=== PATIENT | female | born 1980 | race Caucasian/White ===

== ENCOUNTER 2016-05-11 10:06 | Emergency (ER) | payer OTHER ==
[~2016-05-11] VITALS: Ht 167.6 cm; Wt 62.0 kg
[~2016-05-11 10:06] MED LIST: NAPR-1169 PO
[2016-05-11 10:20] VITALS: TEMP 36.9; Ht 167.6 cm; Wt 62.0 kg
[2016-05-11] MEDS ORDERED: MoRPHine SULFATE 10 MG/ML CARP/VIAL IM STA ×2 (10:55→11:54)
--- NOTE | 2016-05-11 10:57 | EMERGENCY ROOM VISIT NOTE ---
History Report prepared by Amairani: Eliseo Cole Under the Supervision of: Dr. Jong Brooks M.D. First contact with patient: 10:49 Chief Complaint: BACK PAIN Stated Complaint: BACK PAIN History of Present Illness The patient is a 36 year old female who presents to the Emergency Room with complaints of worsening low back pain for the past two weeks. The pain is throbbing in nature and is worse when she is sitting and ambulating. The pain radiates to the right buttock but not down into the legs. 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 She does not recall any specific incident of injury. The patient denies incontinence of the bowel or bladder. She started Flexeril and Prednisone last night after going to urgent care. She had a negative X-ray at urgent care. She denies the possibility of . Source of History: patient Onset: two weeks ago Position: back (lower) Quality: other (throbbing) Timing: worsening Modifying Factors (Worsening): other (sitting, ambulation) Review of Systems All systems have been listed, reviewed, and are negative other than those previously mentioned. Please see Additional Medical History Sheet. Past Medical & Surgical Surgical Problems: (1) Hx of tubal ligation Family History Cancer Diabetes mellitus Hypertension Seizures Social History Smoking Status: Current Every Day Smoker Alcohol Use: occasionally Marital Status: single Housing Status: lives with family Occupation Status: employed Current/Historical Medications Scheduled Cyclobenzaprine HCl (Cyclobenzaprine HCl), 10 MG PO UD Prednisone (Prednisone), 10 MG PO UD Scheduled PRN Hydrocodone/Acetaminophen 5MG/325MG ([place] 5MG/325MG), 1-1.5 TABLET PO Q4-6H PRN for Pain Naproxen (Naprosyn), 500 MG PO DIRECTED PRN for Pain Allergies Coded Allergies: Fentanyl (Unverified Allergy, Mild, SEVERE ITCHING, 05/11/16) Physical Exam Vital Signs Date Time Temp Pulse Resp B/P Pulse Ox O2 Delivery O2 Flow Rate FiO2 05/11/16 13:00 86 16 128/78 97 05/11/16 11:49 86 16 128/78 97 Room Air 05/11/16 10:20 36.9 96 18 148/82 97 Room Air Physical Exam GENERAL: Patient awake, alert, oriented x 3. Patient follows commands. Patient does not appear toxic. Patient is adequately hydrated and well- nourished. SKIN: No erythema, pallor, cyanosis or rash HEENT: Normal head, pupils equal, reactive to light and accommodation. LUNGS: Clear to auscultation. No wheezes, no rales, no rhonchi. HEART: No murmurs. No gallops. No rubs BACK: Tenderness over the lower lumbar and sacral spine with pain that seems to radiate to the right buttock, increased pain with movement of either leg especially the left, deep tendon reflexes brisk and equal bilaterally, motor sensory function intact distally. ABDOMEN: No masses, no rebound, no hepatomegaly or splenomegaly. EXTREMITIES: No signs of trauma. No pedal or pretibial edema. No calf or thigh tenderness. NEUROLOGIC: Cranial nerves II-XII within normal limits. No gross motor sensory function deficits. Medical Decision & Procedures Laboratory Results Test 05/11/16 13:14 Bedside Troponin I 0.000 ng/ml (0-0.045) Medications Administered Medications (Trade) Dose Ordered Sig/Ed Route Start Time Stop Time Status Last Admin Dose Admin Morphine Sulfate (MoRPHine SULFATE INJ) 10 mg NOW STAT IM 05/11/16 10:55 05/11/16 11:02 DC 05/11/16 11:07 10 MG Morphine Sulfate (MoRPHine SULFATE INJ) 6 mg NOW STAT IM 05/11/16 11:54 05/11/16 11:55 DC 05/11/16 12:05 6 MG ED Course 1052: Past medical records reviewed. The patient was evaluated in room B11b. A complete history and physical examination was performed. 1055: Morphine Sulfate 10 mg IM. 1150: The patient is still in pain. Ordering more morphine. 1154: Morphine Sulfate 6 mg IM. 1245: The patient is still having some pain. Discussed the discharge instructions with her. She verbalized understanding and agreement. The patient is ready for discharge. Medical Decision I considered multiple diagnoses including cauda equina, ruptured nucleus pulposus, muscular strain, DJD. The patient is here with severe lower back pain. The patient has irregular bowel movements and has not had a good bowel movement in the past 4 days. The patient did have a enema within the past week. The patient was given 2 shots of morphine. We did discuss the options of an MRI but she and her elected to forego that procedure for now. The patient will continue taking prednisone that was already prescribed. She is also to use Flexeril. The patient has hydrocodone to take in addition. Patient is to be off work and school for the next 3 days. Impression Primary Impression: Severe low back pain Scribe Attestation The scribe's documentation has been prepared under my direction and personally reviewed by me in its entirety. I confirm that the note above accurately reflects all work, treatment, procedures, and medical decision making performed by me. Departure Information Dispostion Home / Self-Care Referrals Chela Richards M.D. (PCP) Forms HOME CARE DOCUMENTATION FORM, IMPORTANT VISIT INFORMATION, School Instructions, Work Instructions Patient Instructions My [facility] Additional Instructions Take 1 dose of MiraLAX as soon as you get home. Take a second dose tonight if you have not yet had a bowel movement. Continue prednisone as prescribed. Continue Flexeril as prescribed. Start taking ibuprofen after the prednisone course has been completed. Follow-up with your family physician within the next several days. Return here and if pain is getting worse. Off school and work for the next 3 days. Apply heat intermittently to your lower back over the next 3 days.
[2016-05-11] MEDS ORDERED: HYDR-5688 PO (11:08)
[2016-05-11] MEDS ORDERED: PRED10TA PO (11:08)
[2016-05-11] MEDS ORDERED: CYCL10TA7 PO (11:08)
[2016-05-11 13:00] VITALS: BP 128/78; PULSE 86; O2SAT 97
[2016-05-18] MEDS ORDERED: ATV1 PO (08:47)
[2016-05-18] MEDS ORDERED: RXC5 PO (08:47)
== END 2016-05-11 13:00 | disposition home or self-care (01) ==
LOC: C.EDB 10:07
DX: M54.5 Low back pain (principal); F17.200 Nicotine dependence, unspecified, uncomplicated; Z88.8 Allergy status to other drugs, medicaments and biological substances; Z80.9 Family history of malignant neoplasm, unspecified; Z83.3 Family history of diabetes mellitus; Z82.49 Family history of ischemic heart disease and other diseases of the circulatory system; Z82.0 Family history of epilepsy and other diseases of the nervous system

== ENCOUNTER 2016-05-16 10:44 | Inpatient (IN) | payer OTHER ==
[~2016-05-16] VITALS: Ht 172.7 cm; Wt 61.8 kg
[~2016-05-16 10:44] MED LIST changes: +CYCL10TA7 PO; +HYDR-5688 PO; +PRED10TA PO
[2016-05-16] MEDS ORDERED: SODIUM CHLORIDE 0.9% 1000ML 1,000 ML IV STA (11:22)
[2016-05-16] MEDS ORDERED: DEXAMETHASONE SOD INJ 4 MG/ML VIAL IV STA (11:22)
[2016-05-16] MEDS ORDERED: HYDROmorphone INJ 1 MG/ML SYR IV STA (11:22)
[2016-05-16] MEDS ORDERED: KETOROLAC TROMETHAMINE 30 MG/ML VIAL IV STA (11:22)
[2016-05-16] MEDS ORDERED: DEXAMETHASONE SOD INJ 10 MG/ML VIAL ONE (11:53)
[2016-05-16 11:55] LABS: BASO % 0.3 %; BASO ABS # 0.03 K/uL (0-0.2); COMPLETE YES; EOS % 1.2 %; HEMATOCRIT 32.8 % (37-47); IG% 0.3 %; LYMPH % 36.4 %; LYMPH ABS # 3.27 K/uL (1.2-3.4); MEAN CELL VOLUME 85.9 fL (80-100); MEAN CORPUSCULAR HEMOGLOBIN 28.8 pg (25-34); MEAN CORPUSCULAR HGB CONC 33.5 g/dl (32-36); MEAN PLATELET VOLUME 9.7 fL (7.4-10.4); MONO % 9.8 %; PLATELET COUNT 256 K/uL (130-400); RED BLOOD COUNT 3.82 M/uL (4.2-5.4); WHITE BLOOD COUNT 8.98 K/uL (4.8-10.8)
[2016-05-16 12:00] LABS: URINE APPEARANCE CLEAR (CLEAR); URINE BILIRUBIN NEG (NEG); URINE COLOR YELLOW; URINE EPITHELIAL CELL AUTO >30 /lpf (0-5); URINE NITRITE NEG (NEG); URINE PH 7.5 (4.5-7.5); URINE SPECIFIC GRAVITY 1.006 (1.000-1.030); UROBILINOGEN NEG (NEG); ZZUR CULT IF INDIC CLEAN CATCH YES
[2016-05-16] MEDS ORDERED: DiphenhydrAMINE HCL 50 MG/ML VIAL IV STA (12:02)
[2016-05-16] MEDS ORDERED: LORAZEPAM 2 MG/ML 1 ML VIAL IV STA (12:02)
[2016-05-16 12:06] LABS: MANUAL MICROSCOPIC REQUIRED? NO; REVIEW REQ? YES
[2016-05-16 12:11] LABS: BLOOD UREA NITROGEN 8 mg/dl (7-18); BUN/CREATININE RATIO 14.6 (10-20); C-REACTIVE PROTEIN < 0.29 mg/dl (0-0.29); CALCIUM 8.8 mg/dl (8.5-10.1); CARBON DIOXIDE 26 mmol/L (21-32); CHLORIDE 109 mmol/L (98-107); CREATININE 0.57 mg/dl (0.60-1.20); GLUCOSE 98 mg/dl (70-99); POTASSIUM 3.6 mmol/L (3.5-5.1); SODIUM 141 mmol/L (136-145)
[2016-05-16] MEDS ORDERED: MoRPHine SULFATE 4 MG/ML 1 ML CARP\\VIAL IV STA (12:54)
--- NOTE | 2016-05-16 13:55 | DIAGNOSTIC IMAGING REPORT ---
MRI OF THE LUMBAR SPINE WITHOUT IV CONTRAST CLINICAL HISTORY: Low back pain. Left lower extremity radiculopathy. COMPARISON STUDY: No priors. TECHNIQUE: MRI of the lumbar spine is performed utilizing various T1 and T2-weighted sequences in the axial and sagittal planes. IV contrast was not administered for this examination. FINDINGS: Lumbar spine: Vertebral body height and alignment are maintained throughout the lumbar spine. The transverse and spinous processes appear intact. There is no evidence of spondylolysis. There is chronic degenerative endplate change at L5-S1 with mild associated endplate edema. Small hemangiomas are noted in the bodies of L2 and L4. No destructive bony lesion is identified. Intervertebral discs: There is degenerative disc desiccation and loss of height with a large hernia at L5-S1. The remaining discs are normal in height and signal intensity. Spinal cord: Partially imaged spinal cord is normal in morphology and signal intensity. The conus medullaris terminates at the T12-L1 interspace. The nerve roots of the cauda equina are normal in appearance. L1-L2: Unremarkable. L2-L3: Unremarkable. L3-L4: Unremarkable. L4-L5: Unremarkable. L5-S1: There is a large posterior disc herniation eccentric to the left. This causes moderate to severe central canal stenosis at this level with a minimum AP diameter of 3.5 mm. The herniated fragment is inferiorly extruded and measures up to 2.0 cm. This impinges on the transiting left-sided sacral nerve roots. The neural foramina are patent. Soft tissues: The paraspinous soft tissues are within normal limits. A subcentimeter cyst is noted in the right kidney. IMPRESSION: 1. There is a large disc herniation eccentric to the left at L5-S1 with a large extruded fragment. This causes moderate to severe central canal stenosis at this level and the disc fragment impinges on the transiting left-sided nerve roots. See above. 2. Chronic degenerative endplate change and endplate edema is seen at L5-S1. 3. No significant degenerative change is seen at the remaining lumbar levels. Dictated: 05/16/2016 1:40 PM Transcribed: 05/16/2016 1:55 PM [place] Electronically signed by: Jassi Sparks M.D. 05/16/2016 1:59 PM Dictated Date/Time: 05/16/2016 1:40 PM
[2016-05-16] MEDS ORDERED: MoRPHine SULFATE 4 MG/ML 1 ML CARP\\VIAL IV PRN (16:00)
[2016-05-16] MEDS ORDERED: SODIUM CHLORIDE 0.9% 1000ML 1,000 ML IV SCH (16:09)
[2016-05-16] MEDS ORDERED: OXYCODONE/ACETAMINOPHEN 5-325 TAB PO PRN (16:15)
[2016-05-16] MEDS ORDERED: NALOXONE HCL 0.4 MG/1 ML VIAL/CARP IV PRN (16:15)
[2016-05-16] MEDS ORDERED: PROMETHAZINE HCL INJ 12.5 MG in SODIUM CHLORIDE 0.9% 50ML 50 ML IV PRN (16:15)
[2016-05-16] MEDS ORDERED: MoRPHine SULFATE 1 MG/ML 50 ML PCA CASS IV PRN (16:15)
[2016-05-16] MEDS ORDERED: CYCLOBENZAPRINE HCL 10 MG TAB PO PRN (16:15)
[2016-05-16] MEDS ORDERED: LORAZEPAM INJ 1 MG in SYRINGE 0 ML IV PRN (16:15)
[2016-05-16] MEDS ORDERED: ACETAMINOPHEN 325 MG TAB PO PRN (16:15)
[2016-05-16] MEDS ORDERED: ONDANSETRON INJ 2 MG/ML 2 ML VIAL IV PRN (16:15)
[2016-05-16] MEDS ORDERED: LORAZEPAM 1 MG TAB PO PRN (16:15)
[2016-05-16] MEDS ORDERED: IV FLUIDS COMPLETED PRN (16:30)
--- NOTE | 2016-05-16 17:03 | EMERGENCY ROOM VISIT NOTE ---
History First contact with patient: 10:49 Chief Complaint: BACK PAIN Stated Complaint: BACK PAIN History of Present Illness The patient is a 36 year old female who presents to the Emergency Room with complaints of persistent severe pain in the lower back and extending into the left lower extremity to the foot. The patient reports left lower extremity weakness and difficulty with bowel movements. The patient arrives via ALS and lives because of the pain severity. She was administered morphine 10 mg en route without any relief. 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 She has been seen at the [facility] urgent care center for her symptoms. She has been prescribed [place], Flexeril and corticosteroids without relief of her symptoms. The patient denies any prior history of back injuries or chronic back pain. The patient reports that she was also seen here 5 days ago with similar symptoms. She was offered an MRI at that time, but refused. The patient rates her discomfort a 10 out of 10 on my exam. Review of Systems HEENT: Denies dizziness, visual problems, hearing loss, tinnitus. Denies difficulty swallowing or oral lesions. PULMONARY: Denies cough, shortness of breath, sputum production or hemoptysis. CARDIOVASCULAR: Denies chest pain, palpitations, dyspnea on exertion, orthopnea or peripheral edema. GASTROINTESTINAL: Denies diarrhea, constipation, nausea, vomiting, or abdominal pain. GENITOURINARY: Denies dysuria, frequency, urgency or nocturia. NEUROLOGIC: Denies history of epilepsy, CVA, TIA or chronic headaches. MUSCULOSKELETAL: Denies history of joint tenderness/swelling. SKIN: Denies rashes or lesions. PSYCHIATRIC: Denies history of depression or mental illness. ENDOCRINE: Denies history of diabetes or thyroid disorders. 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) (3) Depressive Disorder Nec (4) Lumbar disc herniation with radiculopathy (5) Tobacco Use Disorder Surgical Problems: (1) Hx of tubal ligation Family History Cancer Diabetes mellitus Hypertension Seizures Social History Smoking Status: Current Every Day Smoker Alcohol Use: occasionally Marital Status: single Housing Status: lives with family Occupation Status: employed Current/Historical Medications Scheduled Cyclobenzaprine HCl (Cyclobenzaprine HCl), 10 MG PO UD Prednisone (Prednisone), 10 MG PO UD Scheduled PRN Hydrocodone/Acetaminophen 5MG/325MG ([place] 5MG/325MG), 1-1.5 TABLET PO Q4-6H PRN for Pain Naproxen (Naprosyn), 500 MG PO DIRECTED PRN for Pain Allergies Coded Allergies: No Known Allergies (Unverified , 05/16/16) Physical Exam Vital Signs Date Time Temp Pulse Resp B/P Pulse Ox O2 Delivery O2 Flow Rate FiO2 05/16/16 15:26 82 132/87 99 05/16/16 13:50 91 123/62 98 Room Air 05/16/16 11:01 36.8 92 20 177/81 100 Room Air Physical Exam CONSTITUTIONAL: Healthy and well nourished. Alert and oriented X 3. Patient appears in severe distress and discomfort. HEENT: Normocephalic, atraumatic. Pupils equal, round and reactive. No sclerae icterus or conjunctival injection/pallor. NECK: Full active range of motion without discomfort. RESPIRATORY: Clear to auscultation bilaterally with no wheezing, crackles, rhonchi or stridor. CARDIOVASCULAR: Regular rate and rhythm with no murmurs, rubs or gallops. GASTROINTESTINAL: Bowel sounds present in all quadrants. Abdomen is soft and nontender to palpation. No rigidity, guarding or rebound. Negative CVA tenderness. Negative McBurney's point tenderness. MUSCULOSKELETAL: Examination shows diffuse tenderness to palpation through the lower lumbar region, more pronounced on the left. She has tenderness to palpation through the left SI joint and sciatic notch. Negative logroll. Positive straight leg raise. Ankle plantar/dorsiflexion strength is 4 out of 5 and symmetric bilaterally. The patient is able to straight leg raise. Passive straight leg on the left significantly worsens her discomfort. Pedal pulses are intact. INTEGUMENTARY: No rash or other significant dermatologic conditions noted. NEUROLOGIC: Cranial nerves II-XII grossly intact. No focal neurologic deficits noted. Deep tendon reflexes of the lower extremities is 2+ and symmetric bilaterally. Left foot and toes are sensory intact. PSYCHIATRIC: Flat affect and cooperative. Medical Decision & Procedures ER Provider Diagnostic Interpretation: Noncontrast MRI of the lumbar spine shows the following: MRI OF THE LUMBAR SPINE WITHOUT IV CONTRAST CLINICAL HISTORY: Low back pain. Left lower extremity radiculopathy. COMPARISON STUDY: No priors. TECHNIQUE: MRI of the lumbar spine is performed utilizing various T1 and T2-weighted sequences in the axial and sagittal planes. IV contrast was not administered for this examination. FINDINGS: Lumbar spine: Vertebral body height and alignment are maintained throughout the lumbar spine. The transverse and spinous processes appear intact. There is no evidence of spondylolysis. There is chronic degenerative endplate change at L5-S1 with mild associated endplate edema. Small hemangiomas are noted in the bodies of L2 and L4. No destructive bony lesion is identified. Intervertebral discs: There is degenerative disc desiccation and loss of height with a large hernia at L5-S1. The remaining discs are normal in height and signal intensity. Spinal cord: Partially imaged spinal cord is normal in morphology and signal intensity. The conus medullaris terminates at the T12-L1 interspace. The nerve roots of the cauda equina are normal in appearance. L1-L2: Unremarkable. L2-L3: Unremarkable. L3-L4: Unremarkable. L4-L5: Unremarkable. L5-S1: There is a large posterior disc herniation eccentric to the left. This causes moderate to severe central canal stenosis at this level with a minimum AP diameter of 3.5 mm. The herniated fragment is inferiorly extruded and measures up to 2.0 cm. This impinges on the transiting left-sided sacral nerve roots. The neural foramina are patent. Soft tissues: The paraspinous soft tissues are within normal limits. A subcentimeter cyst is noted in the right kidney. IMPRESSION: 1. There is a large disc herniation eccentric to the left at L5-S1 with a large extruded fragment. This causes moderate to severe central canal stenosis at this level and the disc fragment impinges on the transiting left-sided nerve roots. See above. 2. Chronic degenerative endplate change and endplate edema is seen at L5-S1. 3. No significant degenerative change is seen at the remaining lumbar levels. Laboratory Results 05/16/16 11:38 Red Blood Count 3.82, Mean Corpuscular Volume 85.9, Mean Corpuscular Hemoglobin 28.8, Mean Corpuscular Hemoglobin Concent 33.5, Mean Platelet Volume 9.7, Neutrophils (%) (Auto) 52.0, Lymphocytes (%) (Auto) 36.4, Monocytes (%) (Auto) 9.8, Eosinophils (%) (Auto) 1.2, Basophils (%) (Auto) 0.3, Neutrophils # (Auto) 4.66, Lymphocytes # (Auto) 3.27, Monocytes # (Auto) 0.88, Eosinophils # (Auto) 0.11, Basophils # (Auto) 0.03 Test 05/16/16 10:56 05/16/16 11:38 05/16/16 16:09 Urine Color YELLOW Urine Appearance CLEAR (CLEAR) Urine pH 7.5 (4.5-7.5) Urine Specific [place] 1.006 (1.000-1.030) Urine Protein NEG (NEG) Urine Glucose (UA) NEG (NEG) Urine Ketones NEG (NEG) Urine Occult Blood NEG (NEG) Urine Nitrite NEG (NEG) Urine Bilirubin NEG (NEG) Urine Urobilinogen NEG (NEG) Urine Leukocyte Esterase MODERATE (NEG) Urine WBC (Auto) 10-30 /hpf (0-5) Urine RBC (Auto) 0-4 /hpf (0-4) Urine Hyaline Casts (Auto) 0 /lpf (0-5) Urine Epithelial Cells (Auto) >30 /lpf (0-5) Urine Bacteria (Auto) NEG (NEG) Urine Renal Epithelial Cells /lpf (0-5) White Blood Count 8.98 K/uL (4.8-10.8) Red Blood Count 3.82 M/uL (4.2-5.4) Hemoglobin 11.0 g/dL (12.0-16.0) Hematocrit 32.8 % (37-47) Mean Corpuscular Volume 85.9 fL (80-100) Mean Corpuscular Hemoglobin 28.8 pg (25-34) Mean Corpuscular Hemoglobin Concent 33.5 g/dl (32-36) Platelet Count 256 K/uL (130-400) Mean Platelet Volume 9.7 fL (7.4-10.4) Neutrophils (%) (Auto) 52.0 % Lymphocytes (%) (Auto) 36.4 % Monocytes (%) (Auto) 9.8 % Eosinophils (%) (Auto) 1.2 % Basophils (%) (Auto) 0.3 % Neutrophils # (Auto) 4.66 K/uL (1.4-6.5) Lymphocytes # (Auto) 3.27 K/uL (1.2-3.4) Monocytes # (Auto) 0.88 K/uL (0.11-0.59) Eosinophils # (Auto) 0.11 K/uL (0-0.5) Basophils # (Auto) 0.03 K/uL (0-0.2) RDW Standard Deviation 51.6 fL (36.4-46.3) RDW Coefficient of Variation 16.6 % (11.5-14.5) Immature Granulocyte % (Auto) 0.3 % Immature Granulocyte # (Auto) 0.03 K/uL (0.00-0.02) Erythrocyte Sedimentation Rate 5 mm/hr (0-21) Est Creatinine Clear Calc Drug Dose 133.1 ml/min C-Reactive Protein < 0.29 mg/dl (0-0.29) Medications Administered Medications (Trade) Dose Ordered Sig/Ed Route Start Time Stop Time Status Last Admin Dose Admin Sodium Chloride (Nss 1000ml) 1,000 ml @ 999 mls/hr Q1H1M STAT IV 05/16/16 11:22 05/16/16 12:22 DC 05/16/16 12:04 999 MLS/HR Hydromorphone HCl (Dilaudid Inj) 1 mg NOW STAT IV 05/16/16 11:22 05/16/16 11:34 DC 05/16/16 11:51 1 MG Ketorolac Tromethamine (Toradol Inj) 30 mg NOW STAT IV 05/16/16 11:22 05/16/16 11:34 DC 05/16/16 11:53 30 MG Dexamethasone Sodium Phosphate (Decadron Inj) 10 mg STK-MED ONCE .ROUTE 05/16/16 11:53 05/16/16 11:54 DC 05/16/16 11:53 10 MG Diphenhydramine HCl (Benadryl Inj) 12.5 mg NOW STAT IV 05/16/16 12:02 05/16/16 12:03 DC 05/16/16 12:11 12.5 MG Lorazepam (Ativan Inj) 1 mg NOW STAT IV 05/16/16 12:02 05/16/16 12:03 DC 05/16/16 12:11 1 MG Morphine Sulfate (MoRPHine SULFATE INJ) 4 mg NOW STAT IV 05/16/16 12:54 05/16/16 12:55 DC 05/16/16 14:08 4 MG Procedure 1. IV hydration: The patient received a liter normal saline bolus 2. IV medications: The patient was initially administered Dilaudid 1 mg, Toradol 30 mg and Decadron 10 mg IVP. After receiving his medication, she had mild nausea and pruritus. She was then administered Benadryl 12.5 mg and Ativan 1 mg IVP. ED Course Patient history and physical exam were performed. Nurse's notes were reviewed. Vital signs were reviewed, showing a blood pressure 177/81. Patient is afebrile. The patient appeared in severe distress, even after receiving morphine 10 mg IVP en route. The patient was administered additional medications and IV hydration as discussed in the previous Procedure section. The patient did request something for anxiety prior to MRI scan. She was administered IV Ativan in addition to medications as discussed in the previous section. The patient did have some pruritus with initial medication dosing, and was also administered IV Benadryl. Noncontrast MRI of the lumbar spine shows a large left-sided L5-S1 disc herniation with fragment. The patient was advised of her MRI findings. The case was also discussed with Dr. Mullen, ED attending physician, who recommended spine surgery consultation. The case was then further discussed with Dr. Dominguez, who agreed that surgical intervention was necessary. He will admit the patient and plan for surgical tomorrow. Please see his dictation for further treatment and final disposition. Medical Decision Impression Primary Impression: L5-S1 disc herniation with extruded fragment Additional Impression: Work related injury Departure Information Referrals Jessy Andrea PA-C (PCP) Patient Instructions My [facility] Problem Qualifiers
[2016-05-16 17:54] VITALS: BP 129/75; PULSE 88; TEMP 36.7; O2SAT 98; Ht 172.7 cm; Wt 61.8 kg
[2016-05-16 19:50] VITALS: BP 117/67; PULSE 85; TEMP 36.9; O2SAT 97
[2016-05-16 19:53] LABS: PREG INTERNAL NEGATIVE QC NEG CLEAR BACKGROUND; PREG INTERNAL POSITIVE QC POS CONTROL LINE
[2016-05-16 20:05] LABS: BUN/CREATININE RATIO 10.4 (10-20); CALCIUM 8.6 mg/dl (8.5-10.1); CREATININE 0.75 mg/dl (0.60-1.20); POTASSIUM 3.9 mmol/L (3.5-5.1)
[2016-05-16 20:08] LABS: ALB/GLOB RATIO 1.1 (0.9-2)
[2016-05-16] MEDS: DOCUSATE SODIUM 100 MG CAP PO SCH (20:39)
[2016-05-16 20:50] VITALS: BP 121/73; PULSE 83; TEMP 36.9; O2SAT 97
--- NOTE | 2016-05-16 20:51 | Anesthesiology Progress Note ---
Anesthesia Progress Note Date of Service May 16, 2016. Progress Notes 36 year old female with lumbar disk herniation for surgical intervention tomorrow. Current every day smoker, otherwise healthy. Labs and ECG on record. No contraindications to procedure from an anesthesia perspective.
[2016-05-16] MEDS ORDERED: NURSING VERBAL MED ORDER ONE ×2 (21:30→21:45)
[2016-05-16 21:45] VITALS: BP 119/74; PULSE 95; TEMP 36.9; O2SAT 97
[2016-05-16 23:34] VITALS: BP 100/62; PULSE 96; TEMP 36.8; O2SAT 96
[2016-05-16] MEDS: HYDROmorphone HCL 0.5MG/ML 50 ML CASSETTE IV PRN (23:40)
[2016-05-17] VITALS (15 sets, daily range): BP systolic 98–132; BP diastolic 56–76; PULSE 66–82; TEMP 36.6–37.4; O2SAT 2–100
[2016-05-17] MEDS ORDERED: CEFAZOLIN 1000MG/55 ML D5W IV SCH (06:00)
[2016-05-17] MEDS ORDERED: CEFAZOLIN IV 1,000 MG in DEXTROSE 5% 50ML 50 ML IV SCH (06:00)
[2016-05-17] MEDS: HYDROmorphone HCL 0.5MG/ML 50 ML CASSETTE IV PRN (07:10)
[2016-05-17] MEDS ORDERED: DiphenhydrAMINE HCL 50 MG/ML VIAL IV PRN (07:45)
--- NOTE | 2016-05-17 08:40 | HISTORY & PHYSICAL EXAMINATION ---
DATE OF ADMISSION: 05/16/2016 CHIEF COMPLAINT: Low back pain with left leg pain going down to her foot and toes. HISTORY OF PRESENT ILLNESS: Ms. Glover is a pleasant 36-year-old female who has had a 2-week history of ongoing pain in the lower back when then extended down her left leg. 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 The pain was very intense this past weekend, went to the Emergency Room on Friday. She was treated and released and had to come by ambulance yesterday. She can barely put pressure on her leg itself due to the pain. She was taking [place], Flexeril and corticosteroids without any relief. They contacted our office for consultation and we decided to admit her overnight for pain control. Today she reports the pain is just as bad as it had been. The IV pain medication takes the edge off but is not completely alleviating her symptoms. She denies any change in bladder or bowel function or any change in balance. PAST MEDICAL HISTORY: Significant for pyelonephritis, atypical squamous cell of the cervix, depression. PAST SURGICAL HISTORY: Significant for tubal ligation. FAMILY HISTORY: Reviewed. REVIEW OF SYSTEMS: Gone over in detail, negative except for what is in the HPI. SOCIAL HISTORY: She is a smoker, has an occasional alcoholic beverage. Denies any illicit drug use. She is single and had been working up until exacerbation of pain. MEDICATIONS: Include prednisone, cyclobenzaprine and hydrocodone. ALLERGIES: SHE HAS NO LISTED ALLERGIES BUT MOST NARCOTICS MAKE HER PRURITIC. PHYSICAL EXAMINATION: GENERAL: She is alert. She will answer questions. She is nontender to palpation along the lumbar spine. Straight leg raise on the left is positive, negative on the right. She has full range of motion of the hips and knees. Lower extremity motor exam reveals focal atrophy. Strength 5/5 to detailed muscle testing with exception of the extensor hallucis longus strength of 4/5. Sensation is blunted in the L5 distribution on the left hand side. Otherwise, sensation is intact. ABDOMEN: Soft, nontender. EXTREMITIES: Calves are supple nontender. Peripheral pulses are palpable. CARDIOVASCULAR EXAMINATION: Reveals no gross abnormalities. Visual moseley are grossly intact. RADIOGRAPHIC IMAGES: MRI of the lumbar spine is available for review. This shows degenerative disc disease at L5-S1. She has very large herniated left-sided disc herniation at L5-S1. This is taking up almost 50% of the canal. There are motor changes at the endplates as well. ASSESSMENT: L5-S1, left-sided disc herniation. PLAN: At this point, the patient is having quite severe pain. The pain medications that she has been on previously have not been helping and she is considering surgical intervention. Surgically would consider performing a lumbar laminectomy at the L5-S1 level versus a complete discectomy with instrumented fusion. The risks and benefits were reviewed in detail with patient via the procedure. At this point, given her age and the focal disc herniation itself she would like to proceed with microdiscectomy. I believe this would be reasonable and gives her a good chance of relief of her radicular complaints, to a lesser degree her lower back pain. Risks of surgery were reviewed and include but are not limited to from anesthetic, stroke, blindness, infection, bleeding requiring transfusion, incomplete relief of symptoms, recurrent disc herniation with need for reoperation, possible fusion in the future. After a thorough discussion, she would like to proceed with surgery. She is n.p.o. at this point and we will try to get it done later today.
[2016-05-17] MEDS ORDERED: NICOTINE 14 MG/24 HR TDSY TD SCH (09:00)
[2016-05-17] MEDS: DOCUSATE SODIUM 100 MG CAP PO SCH ×2 (09:00→20:46)
[2016-05-17] MEDS ORDERED: ONDANSETRON INJ 2 MG/ML 2 ML VIAL ONE (14:55)
[2016-05-17] MEDS ORDERED: PROPOFOL IV EMULSION 10 MG/ML 20 ML VIAL IV ONE (14:55)
[2016-05-17] MEDS ORDERED: MIDAZOLAM HCL 1 MG/ML 2ML VIAL ONE (14:55)
[2016-05-17] MEDS ORDERED: LIDOCAINE HCL 2% 2 ML VIAL (20MG/ML) ONE (14:55)
[2016-05-17] MEDS ORDERED: NEOSTIGMINE METHYLSULFATE 1 MG/ML 10ML VIAL ONE (14:55)
[2016-05-17] MEDS ORDERED: GLYCOPYRROLATE INJ 0.2 MG/ML VIAL ONE ×2 (14:55→16:01)
[2016-05-17] MEDS ORDERED: FENTANYL CITRATE INJ 50 MCG/1 ML 2 ML VIAL ONE ×4 (14:55→16:32)
[2016-05-17] MEDS ORDERED: ATROPINE SULFATE 0.1 MG/ML 5ML SYR IV PRN (15:00)
[2016-05-17] MEDS ORDERED: PROMETHAZINE HCL INJ 6.25 MG in SODIUM CHLORIDE 0.9% 50ML 50 ML IV PRN (15:00)
[2016-05-17] MEDS ORDERED: HYDROmorphone INJ 1 MG/ML SYR IV PRN ×2 (15:00→16:00)
[2016-05-17] MEDS ORDERED: FENTANYL CITRATE INJ 50 MCG/1 ML 2 ML VIAL IV PRN (15:00)
[2016-05-17] MEDS ORDERED: ONDANSETRON INJ 2 MG/ML 2 ML VIAL IV PRN ×2 (15:00→16:00)
[2016-05-17] MEDS ORDERED: EpHEDrine SULFATE INJ 50 MG/ML AMP IV PRN (15:00)
[2016-05-17] MEDS ORDERED: ROCURONIUM BROMIDE 10 MG/ML 5 ML VIAL ONE (15:01)
[2016-05-17] MEDS: EPINEPHRINE INJ ONE ×4 (15:53→17:33)
[2016-05-17] MEDS: BUPIVACAINE 0.5% INJ ONE ×4 (15:53→17:33)
[2016-05-17] MEDS ORDERED: BACITRACIN 50,000 UNITS IR ONE (15:54)
[2016-05-17] MEDS ORDERED: FLOSEAL HEMOSTATIC MATRIX 5ML TOP ONE (15:58)
[2016-05-17] MEDS ORDERED: LORAZEPAM INJ 1 MG in SYRINGE 0.5 ML IV PRN (16:00)
[2016-05-17] MEDS ORDERED: DO NOT ADMINISTER PNEUMOCOCCAL VACCINE PRN ×2 (16:00)
[2016-05-17] MEDS ORDERED: MAGNESIUM HYDROXIDE SUSP 30 ML UDC PO PRN (16:00)
[2016-05-17] MEDS ORDERED: ACETAMINOPHEN 325 MG TAB PO PRN (16:00)
[2016-05-17] MEDS ORDERED: DO NOT ADMINISTER FLU VACCINE PRN ×3 (16:00)
[2016-05-17] MEDS ORDERED: BUPIVACAINE/EPINEPHRINE 0.5% MPF 1:200,000 30 ML VIAL INJ ONE (16:01)
--- NOTE | 2016-05-17 16:01 | DIAGNOSTIC IMAGING REPORT ---
Lumbar spine LUMBAR SPINE 2 OR 3 VIEW CLINICAL HISTORY: L4-L5 laminectomy laminectomy TECHNIQUE: Image intensifier COMPARISON STUDY: None FINDINGS: Surgical instruments posterior to the L5-S1 disc space. IMPRESSION: Surgical instruments posterior to L5-S1 disc space Electronically signed by: Yariel Hargrove M.D. 05/17/2016 3:59 PM Dictated Date/Time: 05/17/2016 3:58 PM
[2016-05-17] MEDS ORDERED: DEXAMETHASONE SOD INJ 4 MG/ML VIAL ONE (16:21)
--- NOTE | 2016-05-17 17:26 | Anesthesiology Progress Note ---
Anesthesia Post Op Note Date & Time May 17, 2016 at 17:26 Vital Signs Pain Intensity: 5.0 Vital Signs Past 12 Hours Date Time Temp Pulse Resp B/P Pulse Ox O2 Delivery O2 Flow Rate FiO2 05/17/16 17:23 36.7 74 18 132/76 99 Nasal Cannula 2.0 05/17/16 17:01 36.8 05/17/16 16:56 62 16 119/56 100 05/17/16 16:56 61 16 05/17/16 16:51 61 15 100 05/17/16 16:51 62 15 05/17/16 16:50 130/72 05/17/16 16:46 69 21 05/17/16 16:46 67 21 99 05/17/16 16:45 63 14 05/17/16 16:45 65 14 117/67 100 05/17/16 16:41 114/68 05/17/16 16:40 63 15 05/17/16 16:40 65 15 100 05/17/16 16:39 61 16 100 05/17/16 16:39 61 16 05/17/16 16:35 117/69 05/17/16 16:34 58 16 100 05/17/16 16:34 57 16 05/17/16 16:30 126/86 05/17/16 16:29 65 12 05/17/16 16:29 65 12 100 05/17/16 16:25 126/76 05/17/16 16:24 71 16 100 05/17/16 16:24 70 16 05/17/16 16:20 130/72 05/17/16 16:19 81 17 05/17/16 16:19 77 17 100 05/17/16 16:15 122/62 05/17/16 16:14 96 18 100 05/17/16 16:14 96 18 05/17/16 16:10 119/93 05/17/16 16:09 36.3 96 16 119/93 96 Mask 10 05/17/16 16:09 103 20 135/73 100 05/17/16 16:09 104 20 05/17/16 11:43 36.9 76 18 110/60 99 Room Air 05/17/16 08:53 97 Room Air 05/17/16 08:00 Room Air 05/17/16 07:44 36.6 73 17 98/58 97 Room Air Notes Mental Status: alert / awake / arousable, participated in evaluation Pt Amnestic to Procedure: Yes Nausea / Vomiting: adequately controlled Pain: adequately controlled Airway Patency, RR, SpO2: stable & adequate BP & HR: stable & adequate Hydration State: stable & adequate Anesthetic Complications: no major complications apparent
[2016-05-17] MEDS: LACTATED RINGER'S 1000ML 1,000 ML IV SCH (17:32)
--- NOTE | 2016-05-17 18:04 | OPERATIVE REPORT ---
DATE OF OPERATION: 05/17/2016 PREOPERATIVE DIAGNOSIS: Herniated nucleus pulposus L5-S1, left. POSTOPERATIVE DIAGNOSIS: Same. PROCEDURE PERFORMED: Lumbar laminotomy L5-S1 left with excision of herniated free fragment. SURGEON: Dr. José Miguel Dominguez. HIGH SCALER: NANY Jones. Due to the complex nature of the procedure, the entire surgery was performed with the operational assistance of NANY Jones. The anesthesiologist assistant certified, under direct supervision, was involved in the actual performance of all aspects of the surgical procedure including hemostasis, tissue retraction and incision, instrument management, patient positioning, and wound closure. ANESTHESIA: General. DISPOSITION: The patient awakened and taken to PACU in stable condition. HISTORY OF PATIENT'S PROBLEMS: This is a 36-year-old female that presents with the above-mentioned diagnosis. After marked decline in status and inability to ambulate, she elected to undergo the above-mentioned procedure. Risks, benefits, pros, cons, and alternatives were outlined in detail preoperatively. PROCEDURE IN DETAIL: The patient was met with preoperatively, case discussed and all questions were addressed. At that point the patient was taken back to operative suite and after undergoing successful general intubation by the department of anesthesia was placed in prone position on Davonte table atop Kam frame. All bony prominences were well padded and the eyes were inspected to ensure there was no external pressure placed upon them. At this point, lumbar spine was prepped and draped in normal sterile fashion. With assistance of fluoroscopy, we identified the L5-S1 disc space and a midline incision was created overlying this region. Sharp dissection with the assistance of Bovie electrocautery was performed down to and exposing the interlaminar space on the left. Self-retaining retractor was placed. I then performed a hemilaminotomy excision of the lateral aspect of the ligamentum flavum to expose a severely compressed traversing S1 nerve root. This was mobilized medially and several massive fragments of free disc material were identified and removed. The area was explored several times to ensure all loose fragments were addressed and copiously irrigated. After this was complete, the incision was then closed with 1-0 Vicryl in the fascia, 2-0 Vicryl subcutaneously, 4-0 Monocryl for final skin closure. Steri-Strips and sterile dressing placed. The patient was awakened and taken to PACU in stable condition. I attest to the content of the Intraoperative Record and any orders documented therein. Any exceptio ns are noted below.
[2016-05-17] MEDS: HYDROmorphone INJ 2 MG/ML SYR/VIAL IV PRN ×2 (18:16→23:24)
[2016-05-17] MEDS: OXYCODONE HCL IR 5 MG TAB (IMMEDIATE RELEASE) PO PRN (19:57)
[2016-05-17] MEDS: CEFAZOLIN IV 1,000 MG in DEXTROSE 5% 50ML 50 ML IV SCH (20:47)
[2016-05-17] MEDS: DEXAMETHASONE INJ 6 MG in SYRINGE 0 ML IV SCH (20:47)
[2016-05-17] MEDS: LORAZEPAM 1 MG TAB PO PRN (23:25)
[2016-05-18] MEDS: DOCUSATE SODIUM 100 MG CAP PO SCH (02:10)
[2016-05-18] MEDS: OXYCODONE HCL IR 5 MG TAB (IMMEDIATE RELEASE) PO PRN ×2 (02:12→07:53)
[2016-05-18 02:55] VITALS: BP 148/68; PULSE 111; TEMP 37.6; O2SAT 94
[2016-05-18] MEDS: HYDROmorphone INJ 2 MG/ML SYR/VIAL IV PRN ×3 (02:57→10:20)
[2016-05-18 02:58] VITALS: TEMP 36.9
[2016-05-18 03:00] VITALS: BP 129/71; PULSE 70; TEMP 36.9; O2SAT 98
[2016-05-18] MEDS: CEFAZOLIN IV 1,000 MG in DEXTROSE 5% 50ML 50 ML IV SCH (05:34)
[2016-05-18] MEDS: DEXAMETHASONE INJ 6 MG in SYRINGE 0 ML IV SCH (05:34)
[2016-05-18] MEDS: LACTATED RINGER'S 1000ML 1,000 ML IV SCH (05:34)
[2016-05-18 08:00] VITALS: BP 116/74; PULSE 89; TEMP 37; O2SAT 96
[2016-05-18] MEDS: LORAZEPAM 1 MG TAB PO PRN (08:02)
[2016-05-18] MEDS ORDERED: RXC5 PO (08:47)
[2016-05-18] MEDS ORDERED: ATV1 PO (08:47)
--- NOTE | 2016-05-18 08:48 | Discharge Instructions ---
Discharge Instructions Date of Service May 18, 2016. Admission Reason for Admission: Lumbar Disc Herniation With Radiculopathy Discharge Discharge Diagnosis / Problem: hnp Discharge Goals Goal(s): Improve function Activity Recommendations Activity Limitations: per Instructions/Follow-up section . Instructions / Follow-Up Instructions / Follow-Up ACTIVITY RECOMMENDATIONS: SELF CARE INSTRUCTIONS AFTER A LAMINECTOMY 1. No prolonged sitting (less than 30 minutes for the first 3 weeks after surgery). 2. No bending, lifting more than 5 pounds, or twisting (roll like a log when turning in bed). 3. You may shower 3 days after surgery if no drainage from wound. Thoroughly dry wound. Do not soak in the tub. 4. Please walk as much as you can for exercise. Gradually increase the distance that you walk as your endurance increases. 5. You may drive in 7-10 days if you are comfortable and no longer requiring pain medications. SPECIAL CARE INSTRUCTIONS: VERY IMPORTANT TO READ AND REVIEW A. Your surgical incision has been closed with a cosmetic suture under the skin that will dissolve in about 6 weeks. In 14 days, you can use a pair of clean scissors and cut the suture that is left outside of the skin at the ends of your incision. B. Complications are uncommon, but please contact us if you have any signs or symptoms of: 1. wound infection (fever higher than 102.5 degrees F, redness, separation of wound, drainage, or increasing pain from the incision) 2. blood clots in legs (pain, swelling, redness and warmth in legs) 3. urinary tract infection (fever higher than 102.5 degrees, burning upon urination or increased frequency of urination) 4. nerve problems (inability to walk on your toes or heels, numbness, loss of bowel or bladder control) 5. any other symptoms that concern you. C. Please call the office at if you have any concerns or questions about your operation or recovery. MANAGING PAIN AFTER SPINAL SURGERY 1. Narcotic medication is intended for short-term use and will be provided for surgical pain. Surgical pain usually lasts for a period of 4-6 weeks. Narcotic medication includes Percocet, Vicodin, Darvocet, Tylenol #3 or Lortab. 2. Longer-term pain is more appropriately treated with non-narcotic medication such as Tylenol ES. 3. Muscle spasm is not appropriately treated with narcotics. Muscle relaxers such as Soma, Flexeril or Skelaxin can be used along with Tylenol ES. 4. Remember that we all live with some "aches and pains". This is not unusual or uncommon after an injury or as we get older. 5. We will provide appropriate medication within the normal guidelines of their prescribed use. We will also be very cautious and aware of potential abuse and extended duration of patients' medication needs. 6. Please allow 2-3 days to process refills. Prescriptions will not be mailed but must be picked up at the office. FOLLOW UP VISIT: Keep your scheduled follow-up appointment. Any questions, please call the office at . Current Hospital Diet Patient's current hospital diet: Regular Diet Discharge Diet Recommended Diet: Regular Diet Procedures Procedures Performed: Left L5-S1 Laminectomy Pending Studies Studies pending at discharge: no Medical Emergencies . Who to Call and When: Medical Emergencies: If at any time you feel your situation is an emergency, please call 911 immediately. . Non-Emergent Contact Non-Emergency issues call your: Primary Care Provider . "Provider Documentation" section prepared by José Miguel Dominguez. VTE Core Measure Inpt VTE Proph given/why not?: Naresh Neves, SCD's
[2016-05-18 09:24] VITALS: BP 116/74; PULSE 89; TEMP 37; O2SAT 96
--- NOTE | 2016-05-18 13:42 | DISCHARGE SUMMARY ---
PRINCIPAL DIAGNOSIS: Herniated nucleus pulposus L5-S1. HOSPITAL COURSE FOLLOWS: On May 16, the patient was admitted for significant pain. The next day, we were able to perform a lumbar laminotomy, excision of herniated free fragments. She tolerated this well and taken to the orthopedic floor postoperatively. Postop day #1, symptoms were markedly improved, pain well controlled and subsequently discharged home. Discharge orders and instructions found on the chart for further review.
[2016-05-19] MEDS ORDERED: BISACODYL 5 MG TABEC PO PRN (06:00)
[2016-05-19] MEDS ORDERED: BISACODYL 10 MG SUPP PR PRN (06:00)
[2016-05-19] MEDS ORDERED: POLYETHYLENE (MIRALAX) 17 GM PACK PO SCH (09:00)
== END 2016-05-18 11:11 | disposition home or self-care (01) | DRG 517 ==
LOC: ENRESERVTM → ENRESERVDT → ENRESERV → EDBD 10:44 → C.EDB 10:45 → C.3E 16:14 → EDBEDREQ 16:24 → OBSVTOIN 05-17 10:29
PROVIDERS: ADMIT Orthopaedic Surgery Orthopaedic Surgery of the Spine; ATTEND Orthopaedic Surgery Orthopaedic Surgery of the Spine
PROC: 01NR0ZZ Release Sacral Nerve, Open Approach (ICD-10-PCS; principal; 2016-05-17 07:15)
DX: M51.27 Other intervertebral disc displacement, lumbosacral region (principal); F17.200 Nicotine dependence, unspecified, uncomplicated; Z98.51 Tubal ligation status; Z82.0 Family history of epilepsy and other diseases of the nervous system; Z82.49 Family history of ischemic heart disease and other diseases of the circulatory system; Z83.3 Family history of diabetes mellitus; Z79.52 Long term (current) use of systemic steroids